=== PATIENT | male | born 1945 | race African-American/Black ===

== ENCOUNTER 2018-10-14 14:17 | Inpatient (IN) | payer OTHER ==
[~2018-10-14] VITALS: Ht 167.6 cm; Wt 79.4 kg
[2018-10-14 15:38] LABS: CLARITY URINE CLOUDY (CLEAR); COLOR URINE YELLOW (YELLOW); KETONES URINE 1+ (NEGATIVE); LEUKOCYTE ESTERASE URINE NEGATIVE (NEGATIVE); NITRITE URINE NEGATIVE (NEGATIVE); OCCULT BLOOD URINE 2+ (NEGATIVE); PH URINE 5.5 (4.5-8.0); PROTEIN URINE 2+ (NEGATIVE); SPECIFIC GRAVITY URINE 1.021 (1.005-1.030)
[2018-10-14 15:44] LABS: HEMATOCRIT. 25.1 % (42.0-52.0); HEMOGLOBIN. 8.2 g/dL (14.0-18.0); MEAN CORPUSCULAR HEMOGLOBIN 26.7 pg (28.0-32.0); MEAN CORPUSCULAR VOLUME 81.7 fL (80.0-94.0); MEAN PLATELET VOLUME 7.3 fl (7.4-10.4); PLATELET 139 x1000/uL (130-400); RED BLOOD CELL COUNT 3.08 mill/uL (4.7-6.1); RED CELL DISTRIBUTION WIDTH 14.5 % (11.6-14.6)
[2018-10-14] MEDS ORDERED: ONDANSETRON HCL 4MG/2ML INJ ONE (15:45)
[2018-10-14] MEDS ORDERED: CEFTRIAXONE 1 G PREMIX 50 ML IV ONE (15:46)
[2018-10-14 16:08] LABS: PLATELET ESTIMATE NORMAL
[2018-10-14 16:57] LABS: CHLORIDE 109 mEq/L (98-107)
[2018-10-14 23:45] VITALS: BP 118/77
[2018-10-15 02:24] VITALS: BP 118/77
[2018-10-15] MEDS ORDERED: ONDANSETRON HCL 4MG/2ML INJ IV PRN (02:45)
[2018-10-15] MEDS ORDERED: ALBUTEROL (0.083%) 2.5MG/3ML NEB HHN PRN (02:45)
[2018-10-15] MEDS ORDERED: POTASSIUM CHLORIDE 20MEQ TABLET SR PO NR (02:45)
[2018-10-15 04:00] VITALS: BP 103/63
[2018-10-15] MEDS ORDERED: VANCOMYCIN 1500MG in DEXTROSE 5% WATER 250ML IV NR (05:00)
[2018-10-15 06:47] LABS: HEMATOCRIT. 41.4 % (42.0-52.0); HEMOGLOBIN. 13.7 g/dL (14.0-18.0); MEAN CORPUSCULAR HEMOGLOBIN 26.5 pg (28.0-32.0); MEAN CORPUSCULAR VOLUME 79.8 fL (80.0-94.0); MEAN PLATELET VOLUME 7.9 fl (7.4-10.4); PLATELET 202 x1000/uL (130-400); RED BLOOD CELL COUNT 5.18 mill/uL (4.7-6.1); RED CELL DISTRIBUTION WIDTH 15.1 % (11.6-14.6)
[2018-10-15 07:05] LABS: CHLORIDE 114 mEq/L (98-107)
[2018-10-15 08:00] VITALS: BP 102/51
[2018-10-15] MEDS: ENOXAPARIN 30MG/0.3ML SYR SUBCUT SCH ×2 (10:17→21:06)
[2018-10-15 10:42] LABS: PLATELET ESTIMATE NORMAL
[2018-10-15 12:00] VITALS: BP 106/53
[2018-10-15 16:00] VITALS: BP 108/64
[2018-10-15 20:00] VITALS: BP 116/72
[2018-10-15] MEDS: VANCOMYCIN 1 G PREMIX 200 ML IV SCH (22:08)
[2018-10-15] MEDS: FLUTICASONE PROPIONATE 50MCG/SPRAY BOTTLE BOTHNSTRLS SCH (22:09)
[2018-10-16] VITALS: BP 113/67
[2018-10-16] MEDS ORDERED: ACETAMINOPHEN 325MG TABLET PO PRN ×2 (00:15→21:00)
[2018-10-16] MEDS ORDERED: HYDROCODONE/ACETAMINOPHEN 5/325MG TABLET PO PRN (00:15)
[2018-10-16 04:00] VITALS: BP 96/57
[2018-10-16] MEDS ORDERED: VANCOMYCIN 1 G PREMIX 200 ML IV SCH (06:00)
[2018-10-16 08:00] VITALS: BP 134/79
[2018-10-16] MEDS: FLUTICASONE PROPIONATE 50MCG/SPRAY BOTTLE BOTHNSTRLS SCH ×2 (08:58→20:40)
[2018-10-16] MEDS: ENOXAPARIN 40MG/0.4ML SYR SUBCUT SCH (08:58)
[2018-10-16] MEDS: LORAZEPAM 2MG/ML CPJ IV PRN (10:05)
[2018-10-16 10:57] LABS: HEMATOCRIT. 42.8 % (42.0-52.0); HEMOGLOBIN. 14.5 g/dL (14.0-18.0); MEAN CORPUSCULAR HEMOGLOBIN 26.8 pg (28.0-32.0); MEAN CORPUSCULAR VOLUME 79.2 fL (80.0-94.0); MEAN PLATELET VOLUME 7.7 fl (7.4-10.4); PLATELET 238 x1000/uL (130-400); RED CELL DISTRIBUTION WIDTH 15.1 % (11.6-14.6)
[2018-10-16 11:25] LABS: AMYLASE 39 IU/L (25-115)
[2018-10-16] MEDS ORDERED: POTASSIUM CHLORIDE 20MEQ TABLET SR PO PRN (11:30)
[2018-10-16 11:41] LABS: PLATELET ESTIMATE NORMAL
[2018-10-16 12:00] VITALS: BP 126/80
[2018-10-16 16:00] VITALS: BP 105/63
[2018-10-16] MEDS: DEXT 5%/0.45% NACL 1000ML 1,000 ML IV SCH (16:24)
[2018-10-16] MEDS: VANCOMYCIN 1 G PREMIX 200 ML IV SCH (16:24)
[2018-10-16 20:00] VITALS: BP 127/75
[2018-10-16] MEDS ORDERED: ONDANSETRON HCL 4MG/2ML INJ IV PRN (21:00)
[2018-10-16] MEDS ORDERED: IPRATROPIUM/ALBUTEROL 0.5-3(2.5)MG/3ML NEB HHN PRN (21:00)
[2018-10-16] MEDS ORDERED: DOCUSATE SODIUM 100MG CAPSULE PO PRN (21:00)
[2018-10-16] MEDS ORDERED: MAGNESIUM/ALUMINUM HYDROXIDE/SIMETHICONE 30ML UDC PO PRN (21:00)
[2018-10-16] MEDS ORDERED: GUAIFENESIN 200MG/10ML SUGAR FREE UDC PO PRN (21:00)
[2018-10-16] MEDS ORDERED: ACETAMINOPHEN 650MG SUPP PR PRN (21:00)
[2018-10-16] MEDS ORDERED: ACETAMINOPHEN 650MG/20.3ML UDC GT PRN (21:00)
[2018-10-16] MEDS ORDERED: DIPHENHYDRAMINE 50MG/ML VIAL IV PRN (21:00)
[2018-10-16] MEDS ORDERED: NA PHOS,M-B/NA PHOS,DI-BA ENEMA 118ML PR PRN (21:00)
[2018-10-16] MEDS: SODIUM CHLORIDE 0.9% INJ 3ML FLUSH IVF SCH (22:07)
[2018-10-17] VITALS (11 sets, daily range): BP systolic 93–113; BP diastolic 57–77
[2018-10-17] MEDS ORDERED: METOPROLOL TARTRATE 25MG TABLET PO SCH ×2 (06:13→09:00)
[2018-10-17] MEDS ORDERED: DIGOXIN 500MCG/2ML AMP IV NR (06:13)
[2018-10-17] MEDS: SODIUM CHLORIDE 0.9% INJ 3ML FLUSH IVF SCH ×3 (06:21→22:57)
[2018-10-17 07:46] LABS: HEMATOCRIT. 43.3 % (42.0-52.0); HEMOGLOBIN. 14.4 g/dL (14.0-18.0); MEAN CORPUSCULAR HEMOGLOBIN 26.2 pg (28.0-32.0); MEAN PLATELET VOLUME 8.2 fl (7.4-10.4); PLATELET 241 x1000/uL (130-400); RED BLOOD CELL COUNT 5.49 mill/uL (4.7-6.1); RED CELL DISTRIBUTION WIDTH 14.9 % (11.6-14.6)
[2018-10-17 07:56] LABS: CHLORIDE 106 mEq/L (98-107)
[2018-10-17 08:06] LABS: LDL CHOLESTEROL 28 mg/dL (5-100)
[2018-10-17 08:07] LABS: HDL CHOLESTEROL 25 mg/dL (40-59)
[2018-10-17] MEDS: FLUTICASONE PROPIONATE 50MCG/SPRAY BOTTLE BOTHNSTRLS SCH ×2 (08:40→20:19)
[2018-10-17] MEDS: LORAZEPAM 2MG/ML CPJ IV PRN (08:41)
[2018-10-17] MEDS: DEXT 5%/0.45% NACL 1000ML 1,000 ML IV SCH (08:41)
[2018-10-17] MEDS: ENOXAPARIN 40MG/0.4ML SYR SUBCUT SCH ×3 (08:43→09:00)
[2018-10-17 10:46] LABS: PLATELET ESTIMATE NORMAL
[2018-10-17] MEDS ORDERED: PIPERACILLIN/TAZOBACTAM 3.375 G in DEXT 5% WATER 100 ML IV SCH (12:30)
[2018-10-17] MEDS ORDERED: DIGOXIN 500MCG/2ML AMP IV ONE (13:45)
[2018-10-17] MEDS ORDERED: DEXT 5%/0.45% NACL KCL 40MEQ/L 1,000 ML IV ONE (15:15)
[2018-10-17] MEDS ORDERED: SODIUM CHLORIDE 0.9% 500 ML IV NR (15:45)
[2018-10-17] MEDS: PIPERACILLIN/TAZOBACTAM 2.25 G in DEXTROSE 5% WATER 50 ML IV SCH ×2 (16:19→20:19)
[2018-10-17 16:41] LABS: BG BASE EXCESS -5.7 mmol/L (-2.0-2.0); BG CARBOXYHEMOGLOBIN 0.7 % (0.5-1.5); BG DEOXYHEMOGLOBIN 6.1 % (0.0-5.0); BG FRACTION INSPIRED OXYGEN 21; BG HCO3 ACT 17.2 mmol/L (22.0-26.0); BG METHEMOGLOBIN 0.7 % (0.0-1.5); BG OXYGEN SATURATION 93.8 % (92.0-98.5); BG OXYHEMOGLOBIN 92.5 % (94.0-97.0); BG PCO2 27.5 mmHg (35.0-45.0); BG PH 7.413 (7.350-7.450); BG PO2 69.5 mmHg (75.0-100.0); BG SAMPLE SITE RIGHT BRACHIAL; BG TOTAL HEMOGLOBIN 15.6 g/dL (12.0-18.0); BG VENT MODE ROOM AIR
[2018-10-17 16:43] LABS: PHOSPHORUS 3.2 mg/dL (2.5-4.9)
[2018-10-17] MEDS: DEXT 5%/0.45% NACL KCL 40MEQ/L 1,000 ML IV SCH (17:31)
[2018-10-17] MEDS: METOPROLOL TARTRATE 25MG TABLET PO SCH (20:28)
[2018-10-17] MEDS ORDERED: NOREPINEPHRINE 8 MG in DEXT 5% WATER 242 ML IV PRN (22:30)
[2018-10-17] MEDS ORDERED: PHENYLEPHRINE 20 MG in DEXT 5% WATER 248 ML IV PRN (23:15)
[2018-10-17] MEDS ORDERED: METOPROLOL TARTRATE 5MG/5ML VIAL IV PRN (23:45)
[2018-10-17] MEDS ORDERED: DIGOXIN 500MCG/2ML AMP IV SCH (23:45)
[2018-10-18] VITALS (81 sets, daily range): BP systolic 74–132; BP diastolic 17–97
[2018-10-18] MEDS: PANTOPRAZOLE SODIUM 40 MG/VIAL IV SCH ×2 (00:27→10:13)
[2018-10-18] MEDS: DEXT 5%/0.45% NACL KCL 40MEQ/L 1,000 ML IV SCH (02:49)
[2018-10-18] MEDS: PIPERACILLIN/TAZOBACTAM 2.25 G in DEXTROSE 5% WATER 50 ML IV SCH ×4 (02:49→21:37)
[2018-10-18 05:25] LABS: HEMATOCRIT. 44.8 % (42.0-52.0); MEAN CORPUSCULAR HEMOGLOBIN 26.6 pg (28.0-32.0); MEAN CORPUSCULAR VOLUME 79.3 fL (80.0-94.0); MEAN PLATELET VOLUME 8.4 fl (7.4-10.4); PLATELET 223 x1000/uL (130-400); RED BLOOD CELL COUNT 5.65 mill/uL (4.7-6.1); RED CELL DISTRIBUTION WIDTH 14.9 % (11.6-14.6)
[2018-10-18 05:26] LABS: CHLORIDE 109 mEq/L (98-107)
[2018-10-18 05:32] LABS: PHOSPHORUS 3.4 mg/dL (2.5-4.9)
[2018-10-18] MEDS ORDERED: METOPROLOL TARTRATE 25MG TABLET PO SCH (06:30)
[2018-10-18] MEDS: SODIUM CHLORIDE 0.9% INJ 3ML FLUSH IVF SCH ×3 (06:40→21:38)
[2018-10-18] MEDS: METOPROLOL TARTRATE 25MG TABLET PO SCH ×2 (09:00→21:00)
[2018-10-18 09:59] LABS: PLATELET ESTIMATE NORMAL
[2018-10-18] MEDS: FLUTICASONE PROPIONATE 50MCG/SPRAY BOTTLE BOTHNSTRLS SCH ×2 (10:46→21:38)
[2018-10-18] MEDS: POTASSIUM CHLORIDE INJ 10 MEQ in DEXT 5%/0.2% NACL 1,000 ML IV SCH ×2 (10:46→19:02)
[2018-10-18] MEDS: ENOXAPARIN 30MG/0.3ML SYR SUBCUT SCH (13:00)
[2018-10-18] MEDS: MORPHINE SULFATE 2 MG/ML CPJ (NOT FOR IM USE) IV PRN (14:34)
[2018-10-18] MEDS ORDERED: IPRATROPIUM BROMIDE (0.02%) 0.5MG/2.5ML NEB HHN PRN (15:00)
[2018-10-18] MEDS: METRONIDAZOLE 500 MG PREMIX 100 ML IV SCH (23:51)
[2018-10-19] VITALS (74 sets, daily range): BP systolic 86–153; BP diastolic 29–109
[2018-10-19] MEDS: POTASSIUM CHLORIDE INJ 10 MEQ in DEXT 5%/0.2% NACL 1,000 ML IV SCH (02:24)
[2018-10-19 05:42] LABS: CHLORIDE 107 mEq/L (98-107)
[2018-10-19 05:43] LABS: BASOPHILS % 0.1 % (0.0-2.0); EOSINOPHILS % 1.3 % (0.0-5.0); HEMATOCRIT. 39.8 % (42.0-52.0); HEMOGLOBIN. 13.4 g/dL (14.0-18.0); LYMPHOCYTES % 10.8 % (20.0-50.0); MEAN CORPUSCULAR HEMOGLOBIN 26.6 pg (28.0-32.0); MEAN CORPUSCULAR VOLUME 78.8 fL (80.0-94.0); MEAN PLATELET VOLUME 8.5 fl (7.4-10.4); MONOCYTES % 7.1 % (2.0-8.0); NEUTROPHILS % 80.7 % (40.0-76.0); PLATELET 201 x1000/uL (130-400); RED BLOOD CELL COUNT 5.05 mill/uL (4.7-6.1); RED CELL DISTRIBUTION WIDTH 15.1 % (11.6-14.6)
[2018-10-19 05:50] LABS: PHOSPHORUS 3.2 mg/dL (2.5-4.9)
[2018-10-19] MEDS: METRONIDAZOLE 500 MG PREMIX 100 ML IV SCH ×2 (06:46→13:30)
[2018-10-19] MEDS: SODIUM CHLORIDE 0.9% INJ 3ML FLUSH IVF SCH ×3 (06:47→21:21)
[2018-10-19] MEDS: PIPERACILLIN/TAZOBACTAM 2.25 G in DEXTROSE 5% WATER 50 ML IV SCH ×3 (06:47→21:21)
[2018-10-19] MEDS: METOPROLOL TARTRATE 25MG TABLET PO SCH ×2 (09:00→20:34)
[2018-10-19] MEDS: ENOXAPARIN 30MG/0.3ML SYR SUBCUT SCH (09:00)
[2018-10-19] MEDS ORDERED: VISCOUS LIDOCAINE 2% 15 ML UDC MM PRN (10:15)
[2018-10-19] MEDS ORDERED: DILTIAZEM HCL 5MG/ML 5ML VIAL IV PRN (13:15)
[2018-10-19] MEDS: DEXT 5%/0.45% NACL KCL 20MEQ/L 1,000 ML IV SCH (13:18)
[2018-10-19 13:32] LABS: INR 1.1; PARTIAL THROMBOPLASTIN TIME 28.9 sec (23.4-31.0)
[2018-10-19] MEDS ORDERED: LIDOCAINE HCL 1% 20ML VIAL (Pyxis) INJ ONE (13:46)
[2018-10-19] MEDS: AZITHROMYCIN 500 MG in DEXT 5% WATER 250 ML IV SCH (16:00)
[2018-10-19] MEDS: MORPHINE SULFATE 2 MG/ML CPJ (NOT FOR IM USE) IV PRN (16:28)
[2018-10-19] MEDS: FLUTICASONE PROPIONATE 50MCG/SPRAY BOTTLE BOTHNSTRLS SCH (20:34)
[2018-10-20] VITALS (34 sets, daily range): BP systolic 84–148; BP diastolic 45–92
[2018-10-20] MEDS: DEXT 5%/0.45% NACL KCL 20MEQ/L 1,000 ML IV SCH ×2 (04:14→15:51)
[2018-10-20] MEDS: PIPERACILLIN/TAZOBACTAM 2.25 G in DEXTROSE 5% WATER 50 ML IV SCH ×3 (05:06→22:48)
[2018-10-20] MEDS: SODIUM CHLORIDE 0.9% INJ 3ML FLUSH IVF SCH ×3 (05:06→22:48)
[2018-10-20 05:26] LABS: BASOPHILS % 0.1 % (0.0-2.0); EOSINOPHILS % 1.1 % (0.0-5.0); HEMATOCRIT. 40.5 % (42.0-52.0); HEMOGLOBIN. 13.6 g/dL (14.0-18.0); LYMPHOCYTES % 13.4 % (20.0-50.0); MEAN CORPUSCULAR HEMOGLOBIN 26.4 pg (28.0-32.0); MEAN CORPUSCULAR VOLUME 78.9 fL (80.0-94.0); MEAN PLATELET VOLUME 8.4 fl (7.4-10.4); MONOCYTES % 7.2 % (2.0-8.0); NEUTROPHILS % 78.2 % (40.0-76.0); PLATELET 195 x1000/uL (130-400); RED BLOOD CELL COUNT 5.14 mill/uL (4.7-6.1); RED CELL DISTRIBUTION WIDTH 15.2 % (11.6-14.6)
[2018-10-20 05:30] LABS: CHLORIDE 106 mEq/L (98-107)
[2018-10-20 05:38] LABS: PHOSPHORUS 2.2 mg/dL (2.5-4.9)
[2018-10-20] MEDS: FAMOTIDINE 20MG/2ML VIAL IV SCH (08:42)
[2018-10-20] MEDS: ENOXAPARIN 30MG/0.3ML SYR SUBCUT SCH (08:42)
[2018-10-20] MEDS: METOPROLOL TARTRATE 25MG TABLET PO SCH ×2 (08:43→20:33)
[2018-10-20] MEDS: FLUTICASONE PROPIONATE 50MCG/SPRAY BOTTLE BOTHNSTRLS SCH ×2 (08:45→20:29)
[2018-10-20] MEDS: AZITHROMYCIN 500 MG in DEXT 5% WATER 250 ML IV SCH (15:51)
[2018-10-20] MEDS: POLYVINYL ALCOHOL OPHTH DROPS 15ML BOTHEYE SCH ×2 (17:59→22:48)
[2018-10-20] MEDS ORDERED: POTASSIUM PHOS,M-BASIC-D-BASIC 20 MMOL in DEXT 5% WATER 243.3333 ML IV NR (18:30)
[2018-10-20] MEDS: MORPHINE SULFATE 2 MG/ML CPJ (NOT FOR IM USE) IV PRN (23:15)
[2018-10-21] VITALS (12 sets, daily range): BP systolic 108–144; BP diastolic 64–92
[2018-10-21] MEDS: PIPERACILLIN/TAZOBACTAM 2.25 G in DEXTROSE 5% WATER 50 ML IV SCH ×3 (05:17→21:31)
[2018-10-21] MEDS: POLYVINYL ALCOHOL OPHTH DROPS 15ML BOTHEYE SCH ×3 (05:17→18:19)
[2018-10-21] MEDS: SODIUM CHLORIDE 0.9% INJ 3ML FLUSH IVF SCH ×3 (05:18→21:32)
[2018-10-21] MEDS: DEXT 5%/0.45% NACL KCL 20MEQ/L 1,000 ML IV SCH ×2 (05:18→18:47)
[2018-10-21 09:00] LABS: BASOPHILS % 0.1 % (0.0-2.0); EOSINOPHILS % 0.6 % (0.0-5.0); HEMATOCRIT. 40.2 % (42.0-52.0); HEMOGLOBIN. 13.3 g/dL (14.0-18.0); LYMPHOCYTES % 12.4 % (20.0-50.0); MEAN CORPUSCULAR HEMOGLOBIN 26.2 pg (28.0-32.0); MEAN CORPUSCULAR VOLUME 79.3 fL (80.0-94.0); MEAN PLATELET VOLUME 7.8 fl (7.4-10.4); MONOCYTES % 10.3 % (2.0-8.0); NEUTROPHILS % 76.6 % (40.0-76.0); PLATELET 221 x1000/uL (130-400); RED BLOOD CELL COUNT 5.07 mill/uL (4.7-6.1); RED CELL DISTRIBUTION WIDTH 14.9 % (11.6-14.6)
[2018-10-21 09:08] LABS: CHLORIDE 111 mEq/L (98-107)
[2018-10-21] MEDS: FLUTICASONE PROPIONATE 50MCG/SPRAY BOTTLE BOTHNSTRLS SCH ×2 (09:09→21:14)
[2018-10-21] MEDS: FAMOTIDINE 20MG/2ML VIAL IV SCH (09:09)
[2018-10-21 09:15] LABS: PHOSPHORUS 3.1 mg/dL (2.5-4.9)
[2018-10-21] MEDS: METOPROLOL TARTRATE 25MG TABLET PO SCH (09:22)
[2018-10-21] MEDS: ENOXAPARIN 30MG/0.3ML SYR SUBCUT SCH (09:23)
[2018-10-21] MEDS: DILTIAZEM HCL 60MG TABLET PO SCH ×2 (13:32→18:19)
[2018-10-21] MEDS ORDERED: KCL 20MEQ/100ML PREMIX 100 ML IV NR (16:30)
[2018-10-21] MEDS: AZITHROMYCIN 500 MG in DEXT 5% WATER 250 ML IV SCH (18:18)
[2018-10-22] VITALS (12 sets, daily range): BP systolic 112–145; BP diastolic 56–86
[2018-10-22] MEDS: POLYVINYL ALCOHOL OPHTH DROPS 15ML BOTHEYE SCH ×4 (00:22→18:25)
[2018-10-22] MEDS: DILTIAZEM HCL 60MG TABLET PO SCH ×4 (00:26→18:22)
[2018-10-22] MEDS: DEXT 5%/0.45% NACL KCL 20MEQ/L 1,000 ML IV SCH ×2 (02:01→08:29)
[2018-10-22] MEDS: SODIUM CHLORIDE 0.9% INJ 3ML FLUSH IVF SCH ×3 (05:53→21:52)
[2018-10-22] MEDS: PIPERACILLIN/TAZOBACTAM 2.25 G in DEXTROSE 5% WATER 50 ML IV SCH ×3 (05:54→21:52)
[2018-10-22 06:47] LABS: BASOPHILS % 0.3 % (0.0-2.0); EOSINOPHILS % 0.9 % (0.0-5.0); HEMATOCRIT. 37.9 % (42.0-52.0); HEMOGLOBIN. 12.6 g/dL (14.0-18.0); LYMPHOCYTES % 17.3 % (20.0-50.0); MEAN CORPUSCULAR HEMOGLOBIN 26.2 pg (28.0-32.0); MEAN CORPUSCULAR VOLUME 78.7 fL (80.0-94.0); MEAN PLATELET VOLUME 7.7 fl (7.4-10.4); MONOCYTES % 10.6 % (2.0-8.0); NEUTROPHILS % 70.9 % (40.0-76.0); PLATELET 265 x1000/uL (130-400); RED BLOOD CELL COUNT 4.82 mill/uL (4.7-6.1)
[2018-10-22 07:18] LABS: CHLORIDE 112 mEq/L (98-107)
[2018-10-22 07:31] LABS: PHOSPHORUS 3.1 mg/dL (2.5-4.9)
[2018-10-22] MEDS: ENOXAPARIN 30MG/0.3ML SYR SUBCUT SCH (08:29)
[2018-10-22] MEDS: FAMOTIDINE 20MG/2ML VIAL IV SCH (08:29)
[2018-10-22] MEDS: FLUTICASONE PROPIONATE 50MCG/SPRAY BOTTLE BOTHNSTRLS SCH ×2 (08:30→20:06)
[2018-10-22] MEDS: POTASSIUM CHLORIDE INJ 30 MEQ in DEXT 5%/0.2% NACL 1,000 ML IV SCH ×2 (11:46→21:53)
[2018-10-22] MEDS ORDERED: ENOXAPARIN 60MG/0.6ML SYR SUBCUT SCH (19:00)
[2018-10-22 19:42] LABS: INR 1.2
[2018-10-23] VITALS (12 sets, daily range): BP systolic 98–156; BP diastolic 63–82
[2018-10-23] MEDS: POLYVINYL ALCOHOL OPHTH DROPS 15ML BOTHEYE SCH ×4 (00:15→18:00)
[2018-10-23] MEDS: DILTIAZEM HCL 60MG TABLET PO SCH ×4 (00:15→19:59)
[2018-10-23] MEDS: SODIUM CHLORIDE 45ML SPRAY NS SCH ×2 (00:26→03:48)
[2018-10-23] MEDS: POTASSIUM CHLORIDE INJ 30 MEQ in DEXT 5%/0.2% NACL 1,000 ML IV SCH ×2 (01:18→20:29)
[2018-10-23] MEDS: PIPERACILLIN/TAZOBACTAM 2.25 G in DEXTROSE 5% WATER 50 ML IV SCH ×3 (05:40→21:44)
[2018-10-23] MEDS: SODIUM CHLORIDE 0.9% INJ 3ML FLUSH IVF SCH ×3 (05:40→21:45)
[2018-10-23 05:43] LABS: BASOPHILS % 0.5 % (0.0-2.0); HEMATOCRIT. 39.9 % (42.0-52.0); HEMOGLOBIN. 13.1 g/dL (14.0-18.0); LYMPHOCYTES % 18.9 % (20.0-50.0); MEAN CORPUSCULAR HEMOGLOBIN 26.2 pg (28.0-32.0); MEAN CORPUSCULAR VOLUME 79.6 fL (80.0-94.0); MEAN PLATELET VOLUME 7.2 fl (7.4-10.4); MONOCYTES % 10.5 % (2.0-8.0); NEUTROPHILS % 69.1 % (40.0-76.0); PLATELET 293 x1000/uL (130-400); RED BLOOD CELL COUNT 5.02 mill/uL (4.7-6.1); RED CELL DISTRIBUTION WIDTH 15.1 % (11.6-14.6)
[2018-10-23] MEDS: FAMOTIDINE 20MG/2ML VIAL IV SCH (08:38)
[2018-10-23] MEDS ORDERED: PHENYLEPHRINE HCL 0.5% 15ML NASAL SPRAY BOTHNSTRLS SCH (09:00)
[2018-10-23] MEDS ORDERED: ENOXAPARIN 100MG/ML SYR SUBCUT SCH (09:00)
[2018-10-23] MEDS: PHENYLEPHRINE HCL 0.5% 15ML NASAL SPRAY BOTHNSTRLS PRN (21:44)
[2018-10-24] VITALS (8 sets, daily range): BP systolic 120–149; BP diastolic 66–80
[2018-10-24] MEDS: DILTIAZEM HCL 60MG TABLET PO SCH ×4 (00:39→17:58)
[2018-10-24] MEDS: POLYVINYL ALCOHOL OPHTH DROPS 15ML BOTHEYE SCH ×4 (00:39→18:01)
[2018-10-24] MEDS: PIPERACILLIN/TAZOBACTAM 2.25 G in DEXTROSE 5% WATER 50 ML IV SCH ×2 (05:49→15:07)
[2018-10-24] MEDS: SODIUM CHLORIDE 0.9% INJ 3ML FLUSH IVF SCH (05:50)
[2018-10-24 06:23] LABS: BASOPHILS % 0.3 % (0.0-2.0); HEMATOCRIT. 39.1 % (42.0-52.0); LYMPHOCYTES % 17.8 % (20.0-50.0); MEAN CORPUSCULAR HEMOGLOBIN 26.4 pg (28.0-32.0); MEAN CORPUSCULAR VOLUME 79.4 fL (80.0-94.0); MEAN PLATELET VOLUME 7.6 fl (7.4-10.4); MONOCYTES % 8.4 % (2.0-8.0); NEUTROPHILS % 72.5 % (40.0-76.0); PLATELET 362 x1000/uL (130-400); RED BLOOD CELL COUNT 4.93 mill/uL (4.7-6.1)
[2018-10-24] MEDS ORDERED: LOPJ5 IV (08:30)
[2018-10-24] MEDS ORDERED: DILT60TA35 PO (08:30)
[2018-10-24] MEDS ORDERED: APIX5TAB4 PO (08:33)
[2018-10-24] MEDS ORDERED: APIXABAN 5 MG TABLET PO SCH (09:00)
[2018-10-24] MEDS ORDERED: ENOXAPARIN 80MG/0.8ML SYR SUBCUT SCH (09:00)
[2018-10-24] MEDS: FAMOTIDINE 20MG/2ML VIAL IV SCH (09:32)
[2018-10-24] MEDS: PHENYLEPHRINE HCL 0.5% 15ML NASAL SPRAY BOTHNSTRLS PRN ×2 (09:43→18:01)
[2018-10-24] MEDS ORDERED: DEXT 5% WATER + KCL 20MEQ/L 1,000 ML IV SCH (10:00)
[2018-10-24] MEDS: APIXABAN 5 MG TABLET PO SCH ×2 (12:44→17:58)
[2018-10-31] MEDS ORDERED: APIXABAN 5 MG TABLET PO SCH (09:00)
== END 2018-10-24 20:40 | DRG 871 ==
LOC: ER 14:17 → EDBEDREQTM 19:28 → EDBEDREQ 20:11 → EDBEDREQTM 20:11 → ENRESERV 22:23 → 7WST 23:40 → 3WST 10-17 18:08 → MICUSO 10-17 22:30 → 3WST 10-20 15:44 → 8WST 10-23 16:58
PROVIDERS: ADMIT Family Medicine; ATTEND Family Medicine
PROC: 0D9670Z Drainage of Stomach with Drainage Device, Via Natural or Artificial Opening (ICD-10-PCS; 2018-10-18)
PROC: 02HV33Z Insertion of Infusion Device into Superior Vena Cava, Percutaneous Approach (ICD-10-PCS; principal; 2018-10-19)
PROC: B548ZZA Ultrasonography of Superior Vena Cava, Guidance (ICD-10-PCS; 2018-10-19)
PROC: 5A1D70Z Performance of Urinary Filtration, Intermittent, Less than 6 Hours Per Day (ICD-10-PCS; 2018-10-19)
PROC: 0D9670Z Drainage of Stomach with Drainage Device, Via Natural or Artificial Opening (ICD-10-PCS; 2018-10-19)
PROC: 5A1D70Z Performance of Urinary Filtration, Intermittent, Less than 6 Hours Per Day (ICD-10-PCS; 2018-10-20)
DX: A41.9 Sepsis, unspecified organism (principal); E43 Unspecified severe protein-calorie malnutrition; J96.00 Acute respiratory failure, unspecified whether with hypoxia or hypercapnia; N17.0 Acute kidney failure with tubular necrosis; N39.0 Urinary tract infection, site not specified; E87.2 Acidosis; E87.0 Hyperosmolality and hypernatremia; K56.600 Partial intestinal obstruction, unspecified as to cause; I47.1 Supraventricular tachycardia; J98.11 Atelectasis; D64.9 Anemia, unspecified; E66.9 Obesity, unspecified; I10 Essential (primary) hypertension; E78.5 Hyperlipidemia, unspecified; E87.6 Hypokalemia; E87.5 Hyperkalemia; J31.0 Chronic rhinitis; K52.9 Noninfective gastroenteritis and colitis, unspecified; M19.90 Unspecified osteoarthritis, unspecified site; R73.9 Hyperglycemia, unspecified; R26.9 Unspecified abnormalities of gait and mobility; I95.9 Hypotension, unspecified; Z68.28 Body mass index [BMI] 28.0-28.9, adult; Z82.49 Family history of ischemic heart disease and other diseases of the circulatory system
CPT/HCPCS: 36415; 36600; 71045; 74018; 74176; 76937; 80048; 80061; 80202; 81003; 82150; 82330; 82375; 82805; 82962; 83605; 83615; 83735; 84100; 84134; 84145; 84146; 84443; 84484; 84550; 87015; 87045; 87427; 87449; 87804; 92610; 93306; 93970; 96365; 97162; 99291; A6261; C1725; C9113; J0456; J0696; J1160; J1650; J2060; J2270; J2405; J2543; J3370; J3480; J3490; J7040; J7060

== ENCOUNTER 2024-11-25 16:46 | Inpatient (IN) | payer MEDICARE, OTHER ==
[~2024-11-25] VITALS: Ht 185.4 cm; Wt 77.1 kg
[~2024-11-25 16:46] MED LIST: APIX5TAB4 PO; DILT60TA35 PO; METO5VIA33 IV
[2024-11-25 16:50] VITALS: O2SAT 98
[2024-11-25] MEDS ORDERED: ASPIRIN 325MG TABLET PO ONE (17:15)
[2024-11-25 18:41] LABS: BASOPHILS % 0.3 % (0.0-2.0); EOSINOPHILS % 0.4 % (0.0-5.0); HEMATOCRIT. 40.1 % (42.0-52.0); HEMOGLOBIN. 12.9 g/dL (14.0-18.0); LYMPHOCYTES % 15.0 % (20.0-50.0); MEAN PLATELET VOLUME 7.3 fl (7.4-10.4); MONOCYTES % 5.1 % (2.0-8.0); NEUTROPHILS % 79.2 % (40.0-76.0); PLATELET 207 x1000/uL (130-400); RED BLOOD CELL COUNT 4.87 mill/uL (4.7-6.1); RED CELL DISTRIBUTION WIDTH 14.9 % (11.6-14.6)
[2024-11-25 18:55] LABS: INR 1.0
[2024-11-25 18:56] LABS: CREATININE 1.3 mg/dL (0.6-1.3)
[2024-11-25 18:57] LABS: UREA NITROGEN BLOOD 15 mg/dL (9-23)
[2024-11-25 18:58] LABS: ASPARTATE AMINOTRANSFERASE 16 IU/L (<34)
[2024-11-25 18:59] LABS: BILIRUBIN DIRECT 0.2 mg/dL (<=3.0); BILIRUBIN TOTAL 0.8 mg/dL (0.1-1.0); PROTEIN TOTAL 6.7 g/dL (6.0-8.3); TROPONIN I HIGH SENSITIVITY 5 ng/L (3.0-53)
[2024-11-25] MEDS: ASPIRIN 325MG TABLET PO NR (19:09)
[2024-11-25] MEDS ORDERED: MAGNESIUM 2 G PREMIX 50 ML IV ONE (21:00)
[2024-11-25 22:22] LABS: TROPONIN I HIGH SENSITIVITY < 4 ng/L (3.0-53)
[2024-11-26] MEDS: MAGNESIUM 2 G PREMIX 50 ML IV SCH (00:01)
[2024-11-26 00:30] VITALS: BP 152/77; PULSE 61; RESP 19; TEMP 36.2512; TEMP 36.4
[2024-11-26 04:00] VITALS: BP 171/85; PULSE 82; RESP 18; TEMP 36.6; O2SAT 98
[2024-11-26] MEDS: CLONIDINE 0.1MG TABLET PO PRN (06:00)
[2024-11-26 07:00] VITALS: BP 122/77
[2024-11-26] MEDS: AMLODIPINE 5MG TABLET PO SCH (09:22)
[2024-11-26] MEDS: ASPIRIN 81MG TABLET PO SCH (09:22)
[2024-11-26] MEDS: ENOXAPARIN 40MG/0.4ML SYR SUBCUT SCH (09:23)
[2024-11-26 12:00] VITALS: BP 101/70; PULSE 70; RESP 18; TEMP 36.3; O2SAT 96
[2024-11-26 12:08] LABS: CREATININE 1.2 mg/dL (0.6-1.3); TRIGLYCERIDE 88 mg/dL (0-150)
[2024-11-26 12:09] LABS: LDL CHOLESTEROL 86 mg/dL (5-100); UREA NITROGEN BLOOD 9 mg/dL (9-23)
[2024-11-26 12:10] LABS: ASPARTATE AMINOTRANSFERASE 20 IU/L (<34)
[2024-11-26 12:11] LABS: BILIRUBIN TOTAL 0.9 mg/dL (0.1-1.0); PROTEIN TOTAL 6.6 g/dL (6.0-8.3)
[2024-11-26 13:43] LABS: BASOPHILS % 0.5 % (0.0-2.0); EOSINOPHILS % 1.6 % (0.0-5.0); HEMATOCRIT. 36.9 % (42.0-52.0); HEMOGLOBIN. 12.1 g/dL (14.0-18.0); LYMPHOCYTES % 37.0 % (20.0-50.0); MEAN PLATELET VOLUME 7.7 fl (7.4-10.4); MONOCYTES % 11.7 % (2.0-8.0); NEUTROPHILS % 49.2 % (40.0-76.0); PLATELET 211 x1000/uL (130-400); RED BLOOD CELL COUNT 4.55 mill/uL (4.7-6.1); RED CELL DISTRIBUTION WIDTH 14.8 % (11.6-14.6)
[2024-11-26 16:00] VITALS: BP 129/69; PULSE 92; RESP 18; TEMP 36.8; O2SAT 98
[2024-11-26 20:00] VITALS: BP 106/63; PULSE 74; RESP 18; TEMP 36.6; O2SAT 97
[2024-11-26 20:35] LABS: GLUCOSE URINE NEGATIVE (NEGATIVE); KETONES URINE 1+ (NEGATIVE); LEUKOCYTE ESTERASE URINE 1+ (NEGATIVE); NITRITE URINE NEGATIVE (NEGATIVE); OCCULT BLOOD URINE NEGATIVE (NEGATIVE); PH URINE 5.5 (4.5-8.0); PROTEIN URINE TRACE (NEGATIVE); SPECIFIC GRAVITY URINE 1.029 (1.005-1.030); UROBILINOGEN URINE 1.0 E.U./dL (0.2-1.0)
[2024-11-26 20:54] LABS: CLARITY URINE HAZY (CLEAR); COLOR URINE YELLOW (YELLOW)
[2024-11-26 20:56] LABS: RBC URINE 0-2 /hpf (0-2)
[2024-11-26 20:57] LABS: BACTERIA URINE TRACE; MUCUS URINE 1+ /lpf (NONE/TRACE); SQUAMOUS EPITHELIAL CELL URINE 2+ /lpf (RARE/1+)
[2024-11-27] VITALS: BP 119/72; PULSE 63; RESP 18; TEMP 36.7; O2SAT 98
[2024-11-27 04:00] VITALS: BP 129/77; PULSE 64; RESP 20; TEMP 36.2; O2SAT 100
[2024-11-27 08:00] VITALS: BP 144/82; PULSE 68; RESP 18; TEMP 36.5; O2SAT 98
[2024-11-27 12:00] VITALS: BP 122/77; PULSE 68; RESP 18; TEMP 35.8; O2SAT 99
[2024-11-27 16:00] VITALS: BP 118/73; PULSE 70; RESP 18; TEMP 36.5; O2SAT 97
[2024-11-27 20:00] VITALS: BP 102/64; PULSE 70; RESP 18; TEMP 36.5; O2SAT 100
[2024-11-28] VITALS: BP 123/76; PULSE 63; RESP 19; TEMP 36.6; O2SAT 99
[2024-11-28 04:00] VITALS: BP 120/82; PULSE 69; RESP 17; TEMP 36.8; O2SAT 100
[2024-11-28 08:30] VITALS: BP 144/84; PULSE 73; RESP 18; TEMP 36.2; O2SAT 98
[2024-11-28 12:30] VITALS: BP 124/69; PULSE 66; RESP 18; TEMP 36.4; O2SAT 97
[2024-11-28 13:43] VITALS: BP 124/69; PULSE 66; RESP 18; TEMP 97.6
== END 2024-11-28 15:36 | disposition home or self-care (01) | DRG 73 ==
LOC: ER 16:46 → 8WST 22:51 → EDBEDREQ 22:58 → EDBEDREQTM 22:58 → EDBEDREQ 23:00 → ENRESERV 23:53 → ER 11-26 00:05
PROVIDERS: ADMIT Internal Medicine; ATTEND Internal Medicine
DX: G90.89 Other disorders of autonomic nervous system (principal); G92.8 Other toxic encephalopathy; R57.9 Shock, unspecified; E83.42 Hypomagnesemia; I44.0 Atrioventricular block, first degree; I10 Essential (primary) hypertension; D64.9 Anemia, unspecified
CPT/HCPCS: 36415; 71045; 80048; 80053; 80061; 80076; 81003; 82962; 83735; 83880; 84484; 85025; 93005; 99285; J1650; J3475